=== PATIENT | male | born 1990 ===

== ENCOUNTER 2018-12-02 18:13 | Emergency (ER) | payer OTHER ==
[~2018-12-02] VITALS: Ht 182.9 cm; Wt 81.7 kg
[2018-12-02] MEDS ORDERED: KETO10 PO (18:43)
[2018-12-02] MEDS ORDERED: Cleocin HCl300 MG PO (18:43)
[2018-12-02] MEDS ORDERED: ACETAMINOPHEN500 MG PO (18:43)
== END 2018-12-02 18:50 | disposition home or self-care (01) ==
LOC: ER 18:13
DX: K02.9 Dental caries, unspecified (principal); K08.89 Other specified disorders of teeth and supporting structures; F17.200 Nicotine dependence, unspecified, uncomplicated
CPT/HCPCS: 99282